=== PATIENT | male | born 1945 | race Caucasian/White ===

== ENCOUNTER 2021-09-19 09:04 | Outpatient (CLI) | payer MEDICARE, OTHER, SELFPAY ==
--- NOTE | 2021-09-19 09:23 | CT_ITS ---
WS: [id number] LDCT LUNG CANCER SCREENING HISTORY: HX OF TOBACCO USE/NICOTINE Dependence, cigarettes TECHNIQUE: Axial imaging performed from the apices to 1 cm below the costophrenic angles. Coronal and sagittal reformats are submitted with axial MIP series. All CT scans at [facility] use at least one of these dose optimization techniques: automated exposure control; mA and/or kV adjustment per patient size (includes targeted exams where dose is matched to clinical indication); or iterativ e reconstruction. DLP: 77.30 mGy.cm DIvol: Mean CTDIvol: 1.60 (mGy) COMPARISON: None available. Diagnostic quality: Satisfactory Lung Nodules: Mildly lobulated subsolid 8mm nodule in the anterior inferior RIGHT upper lobe. Noncalc ified 5 mm nodule in the mid anterior RIGHT upper lobe. No additional nodules. No endobronchial lesio ns. Lungs: Mild hyperexpansion from emphysema. Heart: Normal size heart. Scattered coronary artery calcifications. Other findings: Atherosclerosis aorta. Small mediastinal and hilar lymph nodes. Cluster of calcificat ions at the subcarina. Prior fundoplication. Hepatic and splenic granulomata. Incompletely visualized low-attenuation mass associated with the lateral RIGHT kidney measures 2.3 x 2.1 cm. Mild thoracic s pondylosis. CT/CT lung screening [id number] IMPRESSION: LUNG-RADS: 4A-Probably Suspicious FOLLOW UP: 3 Month LDCT OTHER FINDINGS (S MODIFIER): None.
== END 2021-09-19 09:05 | disposition home or self-care (01) ==
LOC: RAD 09:05
PROVIDERS: Family Provider Physician Assistant Medical; Visit Provider Family Medicine
DX: Z12.2 Encounter for screening for malignant neoplasm of respiratory organs (principal); F17.210 Nicotine dependence, cigarettes, uncomplicated
CPT/HCPCS: 71271

== ENCOUNTER → 2022-08-29 11:46 | Outpatient (BNVA) | payer MEDICARE, OTHER, SELFPAY | PROVIDERS: Family Provider Physician Assistant Medical; Visit Provider Internal Medicine Cardiovascular Disease | DX: R07.9 Chest pain, unspecified (principal); I44.30 Unspecified atrioventricular block; I45.10 Unspecified right bundle-branch block; R53.83 Other fatigue; I10 Essential (primary) hypertension; I44.0 Atrioventricular block, first degree | CPT/HCPCS: 93005; 99204 ==

== ENCOUNTER → 2022-09-17 14:49 | Outpatient (BNVA) | payer MEDICARE, OTHER, SELFPAY | PROVIDERS: Family Provider Physician Assistant Medical; Referring Provider Family Medicine; Visit Provider Student in an Organized Health Care Education/Training Program | DX: M75.101 Unspecified rotator cuff tear or rupture of right shoulder, not specified as traumatic; R20.0 Anesthesia of skin; R20.2 Paresthesia of skin | CPT/HCPCS: 20610; 73030; 99204; J3301 ==

== ENCOUNTER 2022-10-17 07:16 | Outpatient (CLI) | payer MEDICARE, OTHER, SELFPAY ==
[2022-10-17 07:30] VITALS: BMI 26.7
--- NOTE | 2022-10-17 07:34 | ECG_ITS ---
[facility] Test Date: 2022-10-17 Pat Name: Rod Ayoub Department: Room: Gender: Male Merchandise Clerk: : 1945 Requested By: Yandy Arthur Order Number: [id number] Serjio MD: Yandy Arthur M.D. Interpretive Statements NAME OF STUDY: EXERCISE SESTAMIBI STRESS TEST INDICATION: Chest Pain, PROCEDURE: The baseline electrocardiogram showed [normal sinus rhythm with first-degree AV block and right bundle branch block. At the baseline, the patient's blood pressure was 121/91 mm Hg with a heart rate of 76. The patient exercised for 7 minutes and 30 seconds on a standard Colin protocol. Patient attained a maximum heart rate of 134 beats per minute(92% of the maximum predicted heart rate) with a blood pressure at the peak exercise of 183/109 mm Hg. The EKG at the peak exercise revealed no significant changes. Patient did not have any chest pain or any significant arrhythmis with the exercise Sestamibi was injected 1 minute prior to the peak exercise During the recovery phase, there were no new changes. Blood pressure at the end of the recovery phase was 149/90 mm Hg with a heart rate of 87 per minute. CONCLUSION: 1. No significant EKG changes with the [treadmill exercise 2. No exercise-induced chest pain or cardiac arrhythmia 3. Fair exercise tolerance, attained a maximum of 10.2 METs 4. Sestamibi/Sestamibi perfusion results pending; see separate report. Electronically Signed On 10-18-2022 10:20:13 CDT by Yandy Arthur M.D. [email or web address]
--- NOTE | 2022-10-17 07:34 | NMCV_ITS ---
NM rachell perf SPECT r/s* [id number] Rod Ayoub Age: 77 Gender: M : 1945 Exam Date: 10/17/2022 07:34 Ordering Phys: Yandy Arthur MD ([email or web address]) Technologist: CARTER Garnett Exam Location: [facility] Indications: CORONARY ANGIOPLASTY STATUS STRESS TEST Please [facility] IMAGE PROTOCOL Rest/Stress 1 Exercise Day Radiopharmaceutical Dose (mCi) Administration Site Administered by Rest: Tc-99m 10.6 IV CARTER Browne Sestamipaul Stress:Tc-99m 32.5 IV CARTER Browne Sestamibi Rest: 17-Oct-2022 60 Discovery 630 Stress: 17-Oct-2022 15 Discovery 630 Radiopharmaceutical was injected at 85 % maximum heart rate. Images obtained in supine and prone position. SPECT RESULTS Technical Quality: Excellent Raw Data Analysis: Normal Image Corrections: No attenuation or motion correction applied Summed Stress Score: 0 Summed Rest Score: 1 Summed Difference Score: 0 PERFUSION FINDINGS Patchy areas of slightly decreased tracer uptake was noted in the inferior wall and the wall regions. No significant reversibility was noted in these regions FUNCTIONAL RESULTS (calculated via Gated SPECT) Stress Image LV EF (%): 71 Stress EDV (mL):92 TID: 0.68 Stress ESV (mL):27 FUNCTIONAL FINDINGS: Segmental wall motion analysis revealing no gross wall motion abnormalities IMPRESSIONS 1. Myocardial perfusion imaging revealing patchy areas of persistent decreased tracer uptake in the anterior wall and inferior wall regions, most likely a present attenuation artifact. 2. Normal LV ejection fraction of 71%. 3. LV wall motion analysis revealing no gross wall motion abnormalities. 4. Normal LV wall Low probability for coronary ischemia, based on the above findings Dr Yandy Arthur MD FAC (Electronically Signed) Final Date: 17 October 2022 10:08 S
[2022-10-17 09:35] VITALS: BP 149/91; PULSE 86
== END 2022-10-17 07:17 | disposition home or self-care (01) ==
LOC: CDL 07:18
PROVIDERS: PCP Family Medicine; Visit Provider Internal Medicine Cardiovascular Disease
DX: Z98.61 Coronary angioplasty status (principal)
CPT/HCPCS: 36415; 78452; 93017; 96374; A9500

== ENCOUNTER → 2022-10-21 13:09 | Outpatient (BNVA) | payer MEDICARE, OTHER, SELFPAY | PROVIDERS: PCP Family Medicine; Referring Provider Family Medicine; Visit Provider Nurse Practitioner Family | DX: L21.8 Other seborrheic dermatitis (principal); L98.8 Other specified disorders of the skin and subcutaneous tissue; L82.1 Other seborrheic keratosis; B07.8 Other viral warts; L74.510 Primary focal hyperhidrosis, axilla; F17.210 Nicotine dependence, cigarettes, uncomplicated | CPT/HCPCS: 99204 ==

== ENCOUNTER → 2022-12-23 09:57 | Outpatient (BNVA) | payer MEDICARE, OTHER, SELFPAY | PROVIDERS: PCP Family Medicine; Visit Provider Nurse Practitioner Family | DX: L30.8 Other specified dermatitis (principal); B07.8 Other viral warts; L21.8 Other seborrheic dermatitis; L98.8 Other specified disorders of the skin and subcutaneous tissue; L82.1 Other seborrheic keratosis; L74.510 Primary focal hyperhidrosis, axilla | CPT/HCPCS: 17110; 99214 ==

== ENCOUNTER → 2022-12-24 12:54 | Outpatient (BNVA) | payer MEDICARE, OTHER, SELFPAY | PROVIDERS: PCP Family Medicine; Visit Provider Student in an Organized Health Care Education/Training Program | DX: G56.22 Lesion of ulnar nerve, left upper limb (principal); G56.02 Carpal tunnel syndrome, left upper limb | CPT/HCPCS: 99214 ==

== ENCOUNTER → 2023-01-06 14:11 | Outpatient (BNVA) | payer MEDICARE, OTHER, SELFPAY | PROVIDERS: PCP Family Medicine; Visit Provider Nurse Practitioner Family | DX: I10 Essential (primary) hypertension (principal); Z87.898 Personal history of other specified conditions | CPT/HCPCS: 99213 ==

== ENCOUNTER 2023-01-16 09:50 | Day surgery (SDC) | payer MEDICARE, OTHER, SELFPAY ==
[2023-01-16] VITALS (9 sets, daily range): BP systolic 115–138; BP diastolic 51–79; PULSE 60–75; RESP 16–20; TEMP 36.8–36.9; O2SAT 95–100; BMI 26.6
[2023-01-16] MEDS: scopolamine 1.5 Patch 1 PATCH TRANSDERMA (10:13)
[2023-01-16] MEDS: ketorolac 30 mg/mL INJ IVP (10:14)
[2023-01-16] MEDS: acetaminophen 1,000 MG/100 ML PIGGYBACK 400 MG IV (10:14)
[2023-01-16] MEDS: sodium chloride 0.9% 1,000 ML 30 ML IV (10:21)
--- NOTE | 2023-01-16 11:12 | W.PM.OPSUD ---
Surgery/Procedure H&P Update DATE OF PROCEDURE: January 16, 2023 DATE H&P PERFORMED: 12/24/22 H&P UPDATE INFORMATION: I have reviewed H&P completed within last 30 days, I have examined patient prior to procedure and No changes to prior documentation PREOP DIAGNOSIS: Left carpal tunnel syndrome, left cubital tunnel syndrome PRIMARY INDICATION FOR PROCEDURE: Left carpal tunnel syndrome, left cubital tunnel syndrome PLANNED PROCEDURE: Operation Date: 01/16/23 11:30 Proposed Procedures p Left Carpal Tunnel Release(Left) - Harman Dumont DO s Left Cubital Tunnel Release with possible ulnar nerve transposition(Left) - Harman Dumont DO
[2023-01-16] MEDS: ceFAZolin 2,000 MG in sodium chloride 0.9% (plus) 50 ML 100 MG IV (12:28)
[2023-01-16] MEDS: lidocaine-epi 1% 20 mL INJ INJECTION (13:16)
[2023-01-16] MEDS: ROPivacaine 0.5% SDV 30 mL 25 MG INJECTION (13:19)
--- NOTE | 2023-01-16 13:35 | W.PM.BPON ---
Date of Procedure: 01/16/2023 Surgeon: Harman Dumont DO Civil Engineering Project Designer(s): None Procedure(s) performed: Left carpal tunnel release Left cubital tunnel release Findings of the procedure(s): Patient was found to have left carpal tunnel syndrome left cubital tunnel syndrome and an procedure went as planned with left carpal tunnel release and left cubital tunnel release there is no subluxation of the ulnar nerve and this was left alone and released in situ Estimated blood loss: 10 mL Specimen(s) removed: None Post-operative diagnosis: Left carpal tunnel syndrome left cubital tunnel syndrome
--- NOTE | 2023-01-16 13:36 | PM.OP ---
Operative Report Date of procedure: January 16, 2023 Pre-op diagnosis: Left Carpal Tunnel Syndrome Left CUbital tunnel syndrome Surgeon: Harman Dumont DO Procedure: Postop Diagnosis: Same Procedure done: Left carpal tunnel release Left?cubital?tunnel tunnel release (ulnar nerve decompression at elbow) Surgeon: Harman Dumont DO Estimated blood loss: 10 mL Tourniquet? 22minutes IV fluids: 900 mL Complications: None Findings: See operative report narrative Condition: stable Disposition: same day Brief History: Patient's been seen and worked up in the outpatient setting and findings consistent with preoperative diagnosis.? Patient has Left carpal tunnel syndrome as well as Left?cubital?tunnel syndrome which has been worked up in the outpatient setting has physical exam findings consistent with this as well as confirmatory nerve conduction/EMG nerve conduction study consistent with diagnosis.? Patient's failed conservative treatment.? As result through shared decision making agreed to proceed with? Left carpal tunnel and Left?cubital?tunnel release we talked about treatment options as far as nonoperative and operative intervention.? Understands risk benefits complication alternatives surgical nonsurgical treatment options.? Understanding his risks he agrees to proceed with surgical intervention. Understanding these risks he agrees to proceed with surgery.? Consent obtained in office. Procedure: Patient seen evaluate in the preoperative holding area.? Consent was reviewed and signed with patient.? Correct extremity marked.? Patient seen evaluated by anesthesia department once cleared for surgery was then taken back to the operative suite placed in supine position all bony prominences well-padded patient properly secured to bed.? Left upper extremity placed onto armboard.? Nonsterile tourniquet applied Left upper arm.? Patient then underwent anesthesia per the anesthesia department.? Patient's Left upper extremity was then prepped and draped in standard orthopedic fashion.? Final timeout performed.? Patient received appropriate preoperative antibiotics. Esmarch was used exsanguinate the Left upper extremity.? Tourniquet was insufflated to 250 mmHg. I started with the carpal tunnel release first.? I made a standard open carpal tunnel release starting with the distal most extent in the palm at the Sanford's cardinal line and the incision line was made in line with the fourth ray and ended just distal to the wrist crease.? Sharp scalpel incision was made through skin and subcutaneous tissue I then utilizing self retainer then began to dissect with dissection scissors split longitudinally the palmar fascia.? Next I then utilizing my customer relations assistant Edgardodarosa retractors subsequently utilizing scalpel feathered through the palmaris brevis as well as through the transverse carpal ligament distally.? Once I encountered the floor of the transverse carpal ligament and entered into the carpal tunnel I then switched to dissection scissors.? Carefully released the distal extent of the transverse carpal ligament to the palmar fat.? Care was to protect the recurrent branch and not injured this during this part of the case.? Next I then placed a Frankfort underneath the transverse carpal ligament proximally to protect the nerve in the carpal tunnel contents.? And then I subsequently under loupe magnification utilize my dissection scissors to release the transverse carpal ligament into the antebrachial fascia under direct visualization with care to keep my scissors with a curved ulnarly away from the palmar cutaneous branch.? The transverse carpal was then completely decompressed proximally and a Frankfort was then placed both distally and proximally throughout the carpal tunnel and had complete decompression of the nerve.? The nerve did appear to have hourglass shape as it went through the carpal tunnel.? With significant irritation noted around the nerve.? No masses were noted within the contents of the carpal tunnel.? This completed the carpal tunnel release and then I subsequently irrigated the wound bed and placed a wet Ray-Fab into the incision for later closure. Next marked out the landmarks of the Left elbow of the medial epicondyle and olecranon and made a curvilinear incision following the course of the ulnar nerve at the medial aspect of the elbow.? Sharp scalpel incision was made through skin and subcutaneous tissue.? Next I switched to Littler dissection scissors and spread in plane of the medial antebrachial cutaneous nerve branching which was protected throughout this part of the dissection.? Then I directly came down over the fascia and identified the 2 heads of the FCU fascia and split this Left in the middle and subsequently identified my ulnar nerve distally.? This was then completely released distally under direct visualization and loupe magnification.? Once the nerve was then identified I then subsequently tracked this proximally and released this through Meek's ligament as well as complete decompression of the nerve proximally all the way past the intermuscular septum.? The nerve was completely released and decompressed both proximally and distally.? Ulnar nerve neurolysis performed and completed both proximally and distally with dissection scissors.? I then took the elbow through range of motion and there was no instability or subluxating of the ulnar nerve.? This completed?cubital?tunnel release.? ?Next the wound bed was thoroughly irrigated.? Tourniquet was deflated.? Hemostasis was satisfactory at the?cubital?tunnel release surgery site. I then inspected the carpal tunnel incision and this was found to have satisfactory hemostasis and all this was maintained through bipolar electrocautery.? At this point time I sequentially closed?cubital?tunnel site with 3-0 Vicryl suture in a running horizontal mattress nylon stitch.? ? The carpal tunnel release surgery was then closed in standard interrupted mattress fashion.? Dressing was Xeroform 4 x 4's ABD Curlex soft roll and an Benoit wrap has a bulky soft dressing. Patient was then awakened from anesthesia and taken to PACU in stable condition. Disposition: Patient taken to PACU in stable condition recovering well.? Patient will receive appropriate discharge instructions as well as pain medication postoperatively.? We will follow-up with me in the office in 2 weeks.? Patient understands agrees with current plan.? All questions answered.? He understands if any questions or concerns and contact the office for follow-up appointment..
[2023-01-16] MEDS: HYDROcodone-acetaminophen 5-325 mg Tablet 1 TAB PO (14:46)
--- NOTE | 2023-01-16 15:51 | ANE.PACU2 ---
Inpatient post-anesthesia follow up: Airway intact: Yes Vital signs: Temperature 98.5 F Pulse Rate 60 Respiratory Rate 16 Blood Pressure 123/73 Pulse Oximetry 97 Oxygen Delivery Me thod Room Air Oxygen Flow Rate Fraction of Inspir ed Oxygen Hydration adequate: Yes Nausea and vomiting: No Pain level: 2 Mental status: Baseline
== END 2023-01-16 14:45 | disposition home or self-care (01) ==
PROVIDERS: PCP Family Medicine; Visit Provider Student in an Organized Health Care Education/Training Program
PROC: (CPT 64721; principal; 2023-01-16 11:20)
PROC: (CPT 64718; 2023-01-16 11:20)
DX: G56.02 Carpal tunnel syndrome, left upper limb (principal); G56.22 Lesion of ulnar nerve, left upper limb
CPT/HCPCS: 64718; 64721; J0131; J0690; J1100; J1885; J2371; J2405; J2704; J2795; J3010; J7030

== ENCOUNTER → 2023-02-06 08:10 | Outpatient (BNVA) | payer MEDICARE, OTHER, SELFPAY | PROVIDERS: PCP Family Medicine; Visit Provider Student in an Organized Health Care Education/Training Program | DX: G56.01 Carpal tunnel syndrome, right upper limb (principal); G56.21 Lesion of ulnar nerve, right upper limb | CPT/HCPCS: 99214 ==

== ENCOUNTER 2023-03-06 12:50 | Day surgery (SDC) | payer MEDICARE, OTHER, SELFPAY ==
[2023-03-06] VITALS (8 sets, daily range): BP systolic 126–146; BP diastolic 71–88; PULSE 62–69; RESP 16–18; TEMP 36.1–36.6; O2SAT 94–99; BMI 27.4
[2023-03-06] MEDS: sodium chloride 0.9% 1,000 ML 30 ML IV (13:20)
[2023-03-06] MEDS: acetaminophen 1,000 MG/100 ML PIGGYBACK 400 MG IV (13:20)
[2023-03-06] MEDS: ketorolac 30 mg/mL INJ IVP (13:21)
[2023-03-06] MEDS: scopolamine 1.5 Patch 1 PATCH TRANSDERMA (13:21)
--- NOTE | 2023-03-06 13:48 | W.PM.OPSUD ---
Surgery/Procedure H&P Update DATE OF PROCEDURE: March 06, 2023 DATE H&P PERFORMED: 02/06/23 H&P UPDATE INFORMATION: I have reviewed H&P completed within last 30 days, I have examined patient prior to procedure and No changes to prior documentation PREOP DIAGNOSIS: Right carpal tunnel syndrome, right cubital tunnel syndrome PRIMARY INDICATION FOR PROCEDURE: Right carpal tunnel syndrome, right cubital tunnel syndrome PLANNED PROCEDURE: Operation Date: 03/06/23 14:25 Proposed Procedures p Right Carpal Tunnel Release(Right) - DO jersey Rodarte Right Cubital Tunnel Release(Right) - DO jersey Rodarte Possible Ulnar Nerve Transposition(Right) - Harman Dumont DO
[2023-03-06] MEDS: ceFAZolin 2,000 MG in sodium chloride 0.9% (plus) 50 ML 100 MG IV (14:26)
--- NOTE | 2023-03-06 14:28 | ANES.PREANE2 ---
Pre-Anesthetic Assessment Height/Weight: Height 1.63 m Weight 72.575 kg Temp Pulse Resp BP Pulse Ox O2 Del Method 97.9 F 68 17 146/88 94 Room Air 03/06/23 13:04 03/06/23 13:04 03/06/23 13:04 03/06/23 13:04 03/06/23 13:04 03/06/23 13:05 Preop Diagnosis: Right carpal tunnel syndrome, right cubital tunnel syndrome Operation Date: 03/06/23 14:25 Proposed Procedures p Right Carpal Tunnel Release(Right) - Harman Tim, DO s Right Cubital Tunnel Release(Right) - Harman Tim, DO s Possible Ulnar Nerve Transposition(Right) - Harman Big Stone, DO Familial anesthetic complications: none Was Beta Nieves taken within 24 hours: N/A Was Clonidine taken within 24 hours: N/A Last intake: Intake Last Liquid Date 03/06/23 Last Liquid Time 08:30 Last Solid Date 03/05/23 Last Solid Time 18:00 Social Tobacco and No alcohol Exam alert, oriented x 3 and regular rate & rhythm Airway Submandibular: within normal limits Cervical ROM: within normal limits Mallampati: Class II Pulmonary Chronic Obstructive Pulmonary Disease CV/HEM RBBB Anesthetic Plan ASA status: 3 Anesthesia: General Medications/Allergies Home Medications Medication Instructions Recorded Confirmed Last Taken Type lisinopril 20 mg tablet 20 mg PO DAILY 08/29/22 03/05/23 03/05/23 History nitroglycerin 0.4 mg sublingual 0.4 mg sublingual Q5M PRN chest 08/29/22 03/05/23 Unknown Rx tablet (Nitrostat) pain #30 tabs Allergies Allergy/AdvReac Type Severity Reaction Status Date / Time No Known Allergies Allergy Verified 03/05/23 10:15 Current Medications Generic Name Dose Route Start Last Admin Trade Name Freq PRN Reason Stop Dose Admin Sodium Chloride 1,000 mls @ 30 mls/hr 03/06/23 13:00 03/06/23 13:20 Sodium Chloride 0.9% IV 03/07/23 12:59 30 mls/hr .Q24H DYLAN Administration Data Anesthesia Cardiac Studies: Sestamibi Stress Test (Cardiology) 10/17/22
[2023-03-06] MEDS: ROPivacaine 0.5% SDV 30 mL 150 MG INJECTION (15:15)
[2023-03-06] MEDS: lidocaine-epi 1% 20 mL INJ INJECTION (15:15)
--- NOTE | 2023-03-06 15:31 | P.BOP_ITS ---
Date of Procedure: 03/06/2023 Surgeon: Harman Dumont DO [employer] Supervisor(s): Shelly DIXON Procedure(s) performed: Right carpal tunnel release Right cubital tunnel release (ulnar nerve decompression at the elbow) Findings of the procedure(s): Patient found to have right carpal tunnel syndrome, right cubital tunnel syndrome and went underwent procedure as planned with no complications or issues Estimated blood loss: 10 mL Specimen(s) removed: None Post-operative diagnosis: Right carpal tunnel syndrome, right cubital tunnel syndrome
--- NOTE | 2023-03-06 15:32 | P.OP_ITS ---
Operative Report Date of procedure: March 06, 2023 Surgeon: Harman Dumont DO Certified Phlebotomy Technician: FIORDALIZA Olvera Procedure: Preoperative diagnosis: Right carpal tunnel syndrome, right cubital tunnel syndrome postop Diagnosis: Same Procedure done: Right carpal tunnel release Right?cubital?tunnel tunnel release (ulnar nerve decompression at elbow) Surgeon: Harman Dumont DO Estimated blood loss: 10 mL Tourniquet? 16 minutes IV fluids: 700 mL Complications: None Findings: See operative report narrative Condition: stable Disposition: same day Brief History: Patient's been seen and worked up in the outpatient setting and findings consistent with preoperative diagnosis.? Patient has right carpal tunnel syndrome as well as right?cubital?tunnel syndrome which has been worked up in the outpatient setting has physical exam findings consistent with this as well as confirmatory nerve conduction/EMG nerve conduction study consistent with diag nosis.? Patient's failed conservative treatment.? As result through shared decision making agreed to proceed with? right carpal tunnel and right?cubital?tunnel release we talked about treatment options as far as nonoperative and operative intervention.? Understands risk benefits complication alternatives surgical nonsurgical treatment options.? Understanding his risks he agrees to proceed with surgical intervention. Understanding these risks he agrees to proceed with surgery.? Consent obtained in office. Procedure: Patient seen evaluate in the preoperative holding area.? Consent was reviewed and signed with patient.? Correct extremity marked.? Patient seen evaluated by anesthesia department once cleared for surgery was then taken back to the operative suite placed in supine position all bony prominences well-padded patient properly secured to bed.? right upper extremity placed onto armboard.? Nonsterile tourniquet applied right upper arm.? Patient then underwent anesthesia per the anesthesia department.? Patient's right upper extremity was then prepped and draped in standard orthopedic fashion.? Final timeout performed.? Patient received appropriate preoperative antibiotics. Esmarch was used exsanguinate the right upper extremity.? Tourniquet was insufflated to 250 mmHg. I started with the carpal tunnel release first.? I made a standard open carpal tunnel release starting with the distal most extent in the palm at the Sanford's cardinal line and the incision line was made in line with the fourth ray and ended just distal to the wrist crease.? Sharp scalpel incision was made through skin and subcutaneous tissue I then utilizing self retainer then began to dissect with dissection scissors split longitudinally the palmar fascia.? Next I then utilizing my study assistant Angel retractors subsequently utilizing scalpel feathered through the palmaris brevis as well as through the transverse carpal ligament distally.? Once I encountered the floor of the transverse carpal ligament and entered into the carpal tunnel I then switched to dissection scissors.? Carefully released the distal extent of the transverse carpal ligament to the palmar fat.? Care was to protect the recurrent branch and not injured this during this part of the case.? Next I then placed a Crocheron underneath the transverse carpal ligament proximally to protect the nerve in the carpal tunnel contents.? And then I subsequently under loupe magnification utilize my dissection scissors to release the transverse carpal ligament into the antebrachial fascia under direct visualization with care to keep my scissors with a curved ulnarly away from the palmar cutaneous branch.? The transverse carpal was then completely decompressed proximally and a Crocheron was then placed both distally and proximally throughout the carpal tunnel and had complete decompression of the nerve.? The nerve did appear to have hourglass shape as it went through the carpal tunnel.? With significant irritation noted around the nerve.? No masses were noted within the contents of the carpal tunnel.? This completed the carpal tunnel release and then I subsequently irrigated the wound bed and placed a wet Ray-Fab into the incision for later closure. Next marked out the landmarks of the right elbow of the medial epicondyle and olecranon and made a curvilinear incision following the course of the ulnar nerve at the medial aspect of the elbow.? Sharp scalpel incision was made through skin and subcutaneous tissue.? Next I switched to Littler dissection scissors and spread in plane of the medial antebrachial cutaneous nerve branching which was protected throughout this part of the dissection.? Then I directly came down over the fascia and identified the 2 heads of the FCU fascia and split this right in the middle and subsequently identified my ulnar nerve distally.? This was then completely released distally under direct visualization and loupe magnification.? Once the nerve was then identified I then subsequently tracked this proximally and released this through Meek's ligament as well as complete decompression of the nerve proximally all the way past the intermuscular septum.? The nerve was completely released and decompressed both proximally and distally.? Ulnar nerve neurolysis performed and completed both proximally and distally with dissection scissors.? I then took the elbow through range of motion and there was no instability or subluxating of the ulnar nerve.? This completed?cubital?tunnel release.? ?Next the wound bed was thoroughly irrigated.? Tourniquet was deflated.? Hemostasis was satisfactory at the?cubital?tunnel release surgery site. I then inspected the carpal tunnel incision and this was found to have satisfactory hemostasis and all this was maintained through bipolar electrocautery.? At this point time I sequentially closed?cubital?tunnel site with 3-0 Vicryl suture in a running horizontal mattress nylon stitch.? ? The carpal tunnel release surgery was then closed in standard interrupted mattress fashion.? Dressing was Xeroform 4 x 4's ABD Curlex soft roll and an Benoit wrap has a bulky soft dressing. Patient was then awakened from anesthesia and taken to PACU in stable condition. Disposition: Patient taken to PACU in stable condition recovering well.? Patient will receive appropriate discharge instructions as well as pain medication postoperatively.? We will follow-up with me in the office in 2 weeks.? Patient understands agrees with current plan.? All questions answered.? He understands if any questions or concerns and contact the office for follow-up appointment..
--- NOTE | 2023-03-06 15:54 | ANE.PACU2 ---
Inpatient post-anesthesia follow up: Airway intact: Yes Vital signs: Temperature 97 F Pulse Rate 64 Respiratory Rate 16 Blood Pressure 145/76 Pulse Oximetry 96 Oxygen Delivery Me thod Room Air Oxygen Flow Rate Fraction of Inspir ed Oxygen Hydration adequate: Yes Nausea and vomiting: No Pain level: 3 Mental status: Baseline
== END 2023-03-06 16:38 | disposition home or self-care (01) ==
PROVIDERS: PCP Family Medicine; Visit Provider Student in an Organized Health Care Education/Training Program
PROC: (CPT 64721; principal; 2023-03-06 14:25)
PROC: (CPT 64718; 2023-03-06 14:25)
DX: G56.01 Carpal tunnel syndrome, right upper limb (principal); G56.21 Lesion of ulnar nerve, right upper limb; J44.9 Chronic obstructive pulmonary disease, unspecified
CPT/HCPCS: 64718; 64721; J0131; J0690; J1100; J1885; J2250; J2405; J2704; J2795; J3010; J3490; J7030

== ENCOUNTER → 2023-03-21 09:59 | Outpatient (BNVA) | payer MEDICARE, OTHER, SELFPAY | PROVIDERS: PCP Family Medicine; Visit Provider Physician Assistant | DX: Z98.890 Other specified postprocedural states (principal) | CPT/HCPCS: 99024 ==

== ENCOUNTER → 2023-06-17 17:01 | Outpatient (BNVA) | payer MEDICARE, OTHER, SELFPAY | PROVIDERS: PCP Family Medicine; Visit Provider Internal Medicine Cardiovascular Disease | DX: I65.23 Occlusion and stenosis of bilateral carotid arteries (principal); R55 Syncope and collapse; R07.9 Chest pain, unspecified; I10 Essential (primary) hypertension; I45.2 Bifascicular block; R00.1 Bradycardia, unspecified | CPT/HCPCS: 93005; 99214 ==

== ENCOUNTER 2023-06-30 08:55 | Outpatient (CLI) | payer MEDICARE, OTHER, SELFPAY ==
--- NOTE | 2023-06-30 09:00 | CT_ITS ---
WS: [id number] LDCT LUNG CANCER SCREENING TECHNIQUE: Noncontrast CT of the chest with coronal and sagittal reformatted images. CLINICAL INFORMATION: HISTORY OF TOBACCO USE COMPARISON: CT 2021 DLP: 58.00 mGy.cm DIvol: Mean CTDIvol: 1.00 (mGy) All CT scans at [facility] use at least one of these dose optimization techniques: automat ed exposure control; mA and/or kV adjustment per patient size (includes targeted exams where dose is matched to clinical indication); or iterative reconstruction. FINDINGS: Stable semisolid nodule in the anterior inferior RIGHT upper lobe measuring 8 mm is stable. Additiona l 5 mm nodule RIGHT upper lobe laterally is unchanged. Few calcified granulomas. Small nodule in the lingula measuring 3 mm unchanged. 2 small subcentimeter nodules in the RIGHT middle lobe measuring approximately 3 mm. Hyperinflation. Emphysematous changes. Coronary calcification. And aortic calcification. Prior fundoplication. Spondylitic changes thoracic spine with thoracic kyphosis. Calcified subcarinal lymph nodes. No mediastinal or hilar lymphadenopat hy. No axillary lymphadenopathy. Hepatic granulomas. Spleen granulomas. Adrenal glands are normal. Partially visualized RIGHT renal cy st. CT/CT lung screening [id number] IMPRESSION: LUNG-RADS: 3-Probably Benign FOLLOW UP: 6 Month LDCT
== END 2023-06-30 08:56 | disposition home or self-care (01) ==
LOC: RAD 08:55
PROVIDERS: PCP Family Medicine; Visit Provider Registered Nurse
DX: F17.211 Nicotine dependence, cigarettes, in remission (principal); Z12.2 Encounter for screening for malignant neoplasm of respiratory organs
CPT/HCPCS: 71271

== ENCOUNTER 2023-07-01 10:58 | Outpatient (CLI) | payer MEDICARE, OTHER, SELFPAY ==
--- NOTE | 2023-07-01 11:15 | USCV_ITS ---
Rod Ayoub Age: 78 Gender: M : 1945 Exam Date: 07/01/2023 11:11 Ordering Phys: Yandy Arthur MD ([email or web address]) Technologist: MARIVEL Exam Location[place] [facility] [place]: syncope Risk Factors: Previous Vascular Surgery: Right Brachial BP: / Left Brachial BP: / Right Left Velocity (cm/s) Spectral Plaque Velocity (cm/s) Spectral Plaque Syst/Diast Broadening Syst/Diast Broadening 109.30/27.20 Prox CCA 96.40 / 28.40 119.90/34.40 Mid CCA 121.50/ 37.40 95.80/ 27.00 Distal CCA 80.80 / 26.20 40.50/ 12.30 Prox ICA 70.20 / 13.30 56.30/ 20.20 Mid ICA 70.20 / 11.00 60.70/ 22.40 Distal ICA 60.10 / 9.90 74.40 ECA 86.90 0.50 ICA/CCA 0.60 Antegrade Vertebral Antegrade 67.00/ 26.00 cm/s 30.00/ 9.00 cm/s Tri Subclavian Tri 87.50 146.2 0 FINDINGS Moderate heterogenous irregular plaques of the right bifurcation Minimal to moderate plaque to the left bifurcation Intimal thickening in the common carotid arteries bilaterally. Antegrade flow in the vertebral arteries bilaterally. Normal Doppler flow velocities in the external carotid, subclavian and vertebral arteries CONCLUSIONS Moderate heterogenous irregular plaques of the right bifurcation with the Doppler features, suggesting less than 50% stenosis. Minimal to moderate plaque to the left bifurcation, suggesting less than 50% gnosis No significant stenosis in the vertebral, subclavian or external carotid arteries, based on the above findings no similar previous studies are available for comparison Dr Yandy Arthur MD [facility] (Electronically Signed) Final Date: 04 Jul 2023 09:06 S
== END 2023-07-01 10:59 | disposition home or self-care (01) ==
LOC: RAD 10:58
PROVIDERS: PCP Family Medicine; Visit Provider Internal Medicine Cardiovascular Disease
DX: I65.23 Occlusion and stenosis of bilateral carotid arteries (principal); I77.89 Other specified disorders of arteries and arterioles
CPT/HCPCS: 93880

== ENCOUNTER → 2023-09-09 09:55 | Outpatient (BNVA) | payer MEDICARE, OTHER, SELFPAY | PROVIDERS: PCP Family Medicine; Visit Provider Internal Medicine Cardiovascular Disease | DX: R55 Syncope and collapse (principal); I10 Essential (primary) hypertension; I45.10 Unspecified right bundle-branch block; Z87.898 Personal history of other specified conditions; Z72.0 Tobacco use | CPT/HCPCS: 99213 ==

== ENCOUNTER 2024-08-30 07:45 | Outpatient (CLI) | payer MEDICARE, OTHER, SELFPAY ==
--- NOTE | 2024-08-30 07:56 | CT_ITS ---
WS: [id number] LDCT LUNG CANCER SCREENING HISTORY: NICTOTINE DEPENDENCE TECHNIQUE: Axial imaging performed from the apices to 1 cm below the costophrenic angles. Coronal and sagittal reformats are submitted with axial MIP series. All CT scans at [facility] use at least one of these dose optimization techniques: automated exposure control; mA and/or kV adjustment per patient size (includes targeted exams where dose is matched to clinical indication); or iterative reconstruction. DLP: 55.22 mGy.cm DIvol: Mean CTDIvol: 1.10 (mGy) COMPARISON: 06/30/2023, 09/19/2020 Diagnostic quality: Satisfactory Lungs: Moderate centrilobular emphysema. There are multiple very small bilateral pulmonary nodules identified. These have been previously described and stable since 09/19/2021. Subsolid nodule previously described in the RIGHT upper lobe has less solid component. Largest nodule slightly irregular in shape measures 5 mm in the RIGHT upper lobe and stable. There are additional small nodules in the RIGHT middle lobe and the medial LEFT lower lobe which are stable. No endobronchial lesions. Heart: Normal size heart with no pericardial effusion.. Other findings: Moderate size hiatal hernia. Prior Wood fundoplication. Mild atherosclerosis aorta. Small benign stable lymph nodes in the mediastinum and hilum. Advanced coronary artery calcifications. Splenic and hepatic granulomata. Lobulated contour of the RIGHT kidney. Low-attenuation mass RIGHT kidney 3.3 x 3.0 cm is probably a cyst but cannot be further characterized on this noncontrast exam. Mild increase in thoracic kyphosis. CT/CT lung screening [id number] IMPRESSION: LUNG-RADS: 2-Benign Appearance or Behavior FOLLOW UP: 12 Month: Continue annual screening with LDCT OTHER FINDINGS (S MODIFIER): None.
== END 2024-08-30 07:46 | disposition home or self-care (01) ==
LOC: RAD 07:45
PROVIDERS: PCP Family Medicine; Visit Provider Registered Nurse
DX: Z12.2 Encounter for screening for malignant neoplasm of respiratory organs (principal); F17.210 Nicotine dependence, cigarettes, uncomplicated; J43.2 Centrilobular emphysema; R91.8 Other nonspecific abnormal finding of lung field; K44.9 Diaphragmatic hernia without obstruction or gangrene; I70.0 Atherosclerosis of aorta; R59.0 Localized enlarged lymph nodes; I25.84 Coronary atherosclerosis due to calcified coronary lesion; K75.3 Granulomatous hepatitis, not elsewhere classified; D73.89 Other diseases of spleen; Q63.1 Lobulated, fused and horseshoe kidney; R93.421 Abnormal radiologic findings on diagnostic imaging of right kidney; M40.204 Unspecified kyphosis, thoracic region; Z98.890 Other specified postprocedural states
CPT/HCPCS: 71271

== ENCOUNTER → 2024-11-16 14:28 | Outpatient (BNVA) | payer MEDICARE, OTHER, SELFPAY | PROVIDERS: PCP Family Medicine; Visit Provider Internal Medicine Cardiovascular Disease | DX: R55 Syncope and collapse (principal); I10 Essential (primary) hypertension; I45.10 Unspecified right bundle-branch block; F17.210 Nicotine dependence, cigarettes, uncomplicated; Z79.01 Long term (current) use of anticoagulants | CPT/HCPCS: 99214 ==

== ENCOUNTER 2024-11-29 07:31 | Outpatient (CLI) | payer MEDICARE, OTHER, SELFPAY ==
[2024-11-29 07:53] LABS: Hematocrit 43.2 % (37-53); Hemoglobin 14.40 g/dL (11.27-16.99); Mean Corpuscular HGB Conc 33.3 g/dL (30-55); Mean Corpuscular Hemoglobin 31.4 pg (27-33); Mean Corpuscular Volume 94.3 fl (82-101); Nucleated Red Blood Cells % 0 %; Platelet Count 166 10^3/cmm (157-399); Red Blood Count 4.58 10^6/uL (3.85-5.65); White Blood Count 6.09 10^3/uL (3.29-11.43)
[2024-11-29 07:56] VITALS: BP 164/83; PULSE 60; RESP 16; TEMP 36.6; O2SAT 98; BMI 27.6
[2024-11-29] MEDS: lidocaine-epi 1% 20 mL INJ INJECTION (07:56)
--- NOTE | 2024-11-29 08:14 | W.PM.OPSUD ---
Surgery/Procedure H&P Update DATE OF PROCEDURE: November 29, 2024 DATE H&P PERFORMED: 11/16/24 H&P UPDATE INFORMATION: I have reviewed H&P completed within last 30 days, I have examined patient prior to procedure and No changes to prior documentation PREOP DIAGNOSIS: Recurrent syncope/near syncope PRIMARY INDICATION FOR PROCEDURE: Same as above PLANNED PROCEDURE: Operation Date: 11/29/24 08:30 Proposed Procedures p Loop Recorder Insertion(Not Applicable) - Yandy Arthur MD
--- NOTE | 2024-11-29 08:52 | PM.OP ---
Operative Report Date of procedure: November 29, 2024 Surgeon: Yandy Arthur MD Procedure: Date of Procedure: 11/29/2024 Name of the procedure: ICM implantation IMPLANTABLE STERILE SUPPLY TECHNICIAN INSERTION [facility] REFERRING PROVIDER: Dr FREDY Arthur PREOPERATIVE DIAGNOSIS: Recurrent syncope. POSTOPERATIVE DIAGNOSIS: Same. ESTIMATED BLOOD LOSS: None COMPLICATIONS: None. BRIEF HISTORY: Patient presented with recurrent episodes of syncope/near syncope. He had an event monitor which didn't reveal any significant arrhythmias to explain the symptoms. For further evaluation, an implantable portfolio administrator was recommended PROCEDURE: The procedure was explained to the patient in detail with the risks and benefits. The risk of bleeding, hematoma, vascular injury, infection and other concomitant complications were explained in detail. The patient understood this well and consented to proceed. The patient was brought to the Cardiac Meteorological Engineer. The patient was given 2 g of Keflex preoperatively. The left side of the chest was cleaned and draped in a sterile fashion. 1% Xylocaine was used as local anesthetic agent. An incision was made in the left fourth intercostal space. Making use of the application device, the implantable portfolio administrator was inserted, subcutaneously. 5 minutes of manual pressure was applied, at the puncture site. The patient tolerated the procedure very well and there were no complications. No bleeding or hematoma. Steri-Strips were applied over the insertion site followed by a sterile dressing. Patient was sent back to the medical floor in stable condition IMPLANTED DEVICE Reveal LINQ22 Model number: LNQ II Serial number: [id number] G Make: [employer] Parameters: Standard settings were applied( (tachycardia rate of 154 beats per minute , bradycardia rate of 40 beats per minute and a pause of 3 seconds ; symptom recording -2 episodes of 15 minutes. Atrial fibrillation detection was turned on- recording threshold of ->10 minutes. Sensitivity was kept at 0.035 mV) The R wave sensing was 0.12 mV Discussed with the [employer] regarding the low sensing amplitude. It was advised to leave it as it is and recheck it in the office to follow-up on this.
== END 2024-11-29 09:25 | disposition home or self-care (01) ==
PROVIDERS: PCP Family Medicine; Visit Provider Internal Medicine Cardiovascular Disease
PROC: (CPT 33285; principal; 2024-11-29 08:30)
DX: R55 Syncope and collapse (principal); Z82.49 Family history of ischemic heart disease and other diseases of the circulatory system; F17.210 Nicotine dependence, cigarettes, uncomplicated; I10 Essential (primary) hypertension; I45.10 Unspecified right bundle-branch block
CPT/HCPCS: 33285; 36415; 85025; C1764; C1769; J9999

== ENCOUNTER → 2024-12-13 11:15 | Outpatient (BNVA) | payer MEDICARE, OTHER, SELFPAY | PROVIDERS: PCP Family Medicine; Visit Provider Internal Medicine Cardiovascular Disease | DX: I45.10 Unspecified right bundle-branch block (principal); I10 Essential (primary) hypertension; Z95.818 Presence of other cardiac implants and grafts; F17.210 Nicotine dependence, cigarettes, uncomplicated | CPT/HCPCS: 99214 ==

== ENCOUNTER → 2024-12-15 12:58 | Outpatient (BNVA) | payer MEDICARE, OTHER, SELFPAY | PROVIDERS: PCP Family Medicine; Visit Provider Internal Medicine Cardiovascular Disease | DX: Z45.09 Encounter for adjustment and management of other cardiac device (principal) | CPT/HCPCS: 93298 ==

== ENCOUNTER → 2025-01-19 11:06 | Outpatient (BNVA) | payer MEDICARE, OTHER, SELFPAY | PROVIDERS: PCP Family Medicine; Visit Provider Internal Medicine Cardiovascular Disease | DX: Z45.09 Encounter for adjustment and management of other cardiac device (principal) | CPT/HCPCS: 93298 ==